=== PATIENT | female | born 1955 | race Caucasian/White ===

== ENCOUNTER 2020-01-13 15:30 | Emergency (ER) | payer OTHER ==
[~2020-01-13] VITALS: Ht 165.1 cm; Wt 86.2 kg
[~2020-01-13 15:30] MED LIST: ATELVIA35 MG PO; CYMBALTA60 MG PO; INDERAL60 MG PO; KETOPROFEN75 MG PO; MAXALT10 MG PO; MIRALAX17 GM PO; MIRAPEX 0.250.25 M1 PO; MYSOLINE50 MG PO; NEURONTIN 300300 M1 PO; PAROXETINE HCL30 MG PO; PLAVIX 75 MG TA75 M1 PER TUBE; PROTONIX40 M1 PO; SEROPHENE50 MG PO; VESICARE 5 MG TA5 M1 PO; XANAX 0.5 MG0.5 MG PO; ZANAFLEX4 MG PO
[2020-01-13 17:16] LABS: ABSOLUTE NEUTROPHILS 3.9 thou/uL (1.4-8.2); BASOPHILS 0.3 % (0.0-2.0); EOSINOPHILS 5.5 % (0.0-3.0); HEMATOCRIT 34.9 % (37.0-47.0); HEMOGLOBIN 11.4 gm/dL (12.0-15.0); LYMPHOCYTES 24.4 % (24.0-44.0); MCH 29.4 pg (26.0-34.0); MCHC 32.5 g/dL (28.0-37.0); MCV 90.5 fL (80.0-100.0); MONOCYTES 11.4 % (1.0-8.0); PLATELET COUNT 209 thou/uL (150-400); POLYS 58.4 % (36.0-66.0); RBC 3.86 mil/uL (4.20-5.00); RDW 16.2 % (10.5-14.5); WBC 6.7 thou/uL (4.0-11.0)
[2020-01-13 17:23] LABS: ANION GAP 8 mmol/L (7-16); BUN 11 mg/dL (7-18); CALCIUM 8.4 mg/dL (8.5-10.1); CHLORIDE 108 mmol/L (98-107); CO2 26 mmol/L (21-32); CREATININE 0.8 mg/dL (0.6-1.0); GLUCOSE 135 mg/dL (74-106); POTASSIUM 4.1 mmol/L (3.5-5.1); SODIUM 142 mmol/L (136-145)
[2020-01-13 17:32] LABS: ALBUMIN 2.8 g/dL (3.4-5.0); SGOT 34 U/L (15-37); SGPT 13 U/L (30-65); TOTAL BILIRUBIN 0.3 mg/dL (0.2-1.0); TOTAL PROTEIN 6.8 g/dL (6.4-8.2); TROPONIN-I <0.06 ng/mL (<0.06)
[2020-01-13 17:34] LABS: APTT 25.8 Seconds (24.5-32.8); PROTIME 10.5 Seconds (9.3-11.4)
[2020-01-13] MEDS ORDERED: VENTOLIN HFA 1818 GM INH (19:01)
[2020-01-13 19:31] VITALS: BP 167/98
--- NOTE | 2020-01-14 07:34 | EKG ---
[facility] [place] [address] ELECTROCARDIOGRAM REPORT Name: ANGEL LUIS DORAN Room #: DEP 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: no : 1955 Requested By: Afua Ivey Order Number: [id number] MD: Marcello Moyer Measurements Intervals Edna Rate: 100 P: 62 AK: 154 QRS: -41 QRSD: 150 T: -5 QT: 399 QTc: 515 Interpretive Statements Sinus tachycardia RBBB and LAFB Left ventricular hypertrophy Compared to ECG 08/16/2013 14:17:27 Left anterior fascicular block now present Electronically Signed On 01-14-2020 7:34:11 [employer] by Marcello Moyer [email or web address] <ELECTRONICALLY SIGNED> By: Marcello Moyer MD, FACC 01/14/20 0734 1558 1558 Marcello Moyer MD, [facility] /EPI
== END 2020-01-13 19:32 | disposition home or self-care (01) ==
LOC: ER 15:30
PROVIDERS: Nurse Practitioner Family
DX: J40 Bronchitis, not specified as acute or chronic (principal); R05 Cough; E11.9 Type 2 diabetes mellitus without complications; Z20.828 Contact with and (suspected) exposure to other viral communicable diseases; Z79.899 Other long term (current) drug therapy; Z79.01 Long term (current) use of anticoagulants; Z88.0 Allergy status to penicillin; Z88.1 Allergy status to other antibiotic agents; Z88.8 Allergy status to other drugs, medicaments and biological substances; Z91.041 Radiographic dye allergy status